=== PATIENT | female | born 1995 | race Caucasian/White ===

== ENCOUNTER 2019-05-01 15:47 | Emergency (ER) | payer SELFPAY ==
[~2019-05-01] VITALS: Ht 154.9 cm; Wt 72.6 kg
[2019-05-01] MEDS ORDERED: ONDANSETRON HCL 4MG/2ML INJ IV STA (18:23)
[2019-05-01] MEDS ORDERED: SODIUM CHLORIDE 0.9% 1,000 ML IV ONE (18:23)
[2019-05-01 18:27] VITALS: BP 115/64
[2019-05-01] MEDS ORDERED: LOPERAMIDE 1 MG/7.5 ML UDC PO PRN (18:30)
[2019-05-01 18:34] LABS: BASOPHILS % 0.3 % (0.0-2.0); CLARITY URINE CLEAR (CLEAR); COLOR URINE YELLOW (YELLOW); EOSINOPHILS % 1.6 % (0.0-5.0); HEMATOCRIT. 42.6 % (36.0-48.0); HEMOGLOBIN. 14.5 g/dL (12.0-16.0); KETONES URINE NEGATIVE (NEGATIVE); LEUKOCYTE ESTERASE URINE 3+ (NEGATIVE); LYMPHOCYTES % 29.2 % (20.0-50.0); MEAN CORPUSCULAR HEMOGLOBIN 29.3 pg (28.0-32.0); MEAN CORPUSCULAR VOLUME 86.1 fL (81.0-99.0); MEAN PLATELET VOLUME 8.7 fl (7.4-10.4); MONOCYTES % 6.5 % (2.0-8.0); NEUTROPHILS % 62.4 % (40.0-76.0); NITRITE URINE NEGATIVE (NEGATIVE); OCCULT BLOOD URINE NEGATIVE (NEGATIVE); PH URINE 7.5 (4.5-8.0); PLATELET 323 x1000/uL (130-400); PROTEIN URINE NEGATIVE (NEGATIVE); RED BLOOD CELL COUNT 4.95 mill/uL (4.2-5.4); RED CELL DISTRIBUTION WIDTH 12.7 % (11.6-14.6); SPECIFIC GRAVITY URINE 1.013 (1.005-1.030); UROBILINOGEN URINE 0.2 E.U./dL (0.2-1.0)
[2019-05-01 18:39] LABS: CHLORIDE 106 mEq/L (98-107)
[2019-05-01 18:42] LABS: HCG SCREEN NEGATIVE
[2019-05-01] MEDS ORDERED: LOPERAMIDE HCL 2MG CAPSULE PO PRN (18:45)
== END 2019-05-01 20:15 | disposition home or self-care (01) ==
LOC: ER 15:47
DX: R11.2 Nausea with vomiting, unspecified (principal); R19.7 Diarrhea, unspecified
CPT/HCPCS: 36415; 80053; 81003; 83690; 84703; 85025; 96361; 96374; 99283; J2405; J7030